=== PATIENT | female | born 1995 | race Two or more races ===

== ENCOUNTER 2018-06-27 12:46 | Emergency (ER) | payer MEDICAID, OTHER ==
[~2018-06-27] VITALS: Ht 152.4 cm; Wt 73.5 kg
[2018-06-27 13:45] LABS: Basophils # (auto) 0 uL; Hemoglobin 11.2 g/dL (12.2-16.2); Monocytes # (auto) 0.4 uL
[2018-06-27 13:48] LABS: Basophils % (auto) 0.5 % (0.0-2.0); Eosinophils # (auto) 0.1 uL; Eosinophils % (auto) 1.6 % (0.0-7.0); Hematocrit 34.9 % (36.0-46.0); Lymphocytes # (auto) 3.4 uL; Lymphocytes % (auto) 47.7 % (10.0-50.0); Mean Corpuscular Volume 78.2 fL (80.0-100.0); Monocytes % (auto) 5.7 % (0.0-12.0); Neutrophils # (auto) 3.2 uL; Neutrophils % (auto) 44.5 % (37.0-80.0); Nucleated Red Blood Cells % 0.2 %; Platelet Count (auto) 363 10^3/uL (140-450); Red Blood Cells 4.46 10^6/uL (4.0-5.20); White Blood Cell 7.1 10^3/uL (4.4-10.8)
[2018-06-27 14:20] LABS: Albumin 3.9 g/dL (3.4-5.0); Calcium 8.8 mg/dL (8.5-10.1); Potassium 3.9 mmol/L (3.5-5.1)
[2018-06-27 14:24] LABS: BUN/Creatinine Ratio 15.2; Bilirubin, Total 0.4 mg/dL (0.2-1.0); Total Protein 7.8 g/dL (6.4-8.2)
[2018-06-27 15:05] LABS: Urine WBC None Seen /hpf (0 - 5)
[2018-06-27 15:20] VITALS: BP 111/70
[2018-06-27 15:30] LABS: Urine Bacteria NONE SEEN /hpf (None Seen); Urine Blood Negative /uL (Negative)
== END 2018-06-27 16:18 | disposition home or self-care (01) ==
LOC: ER 12:55
DX: K52.9 Noninfective gastroenteritis and colitis, unspecified (principal); R51 Headache
CPT/HCPCS: 36415; 80053; 81001; 84702; 85025

== ENCOUNTER 2018-10-10 15:52 | Emergency (ER) | payer MEDICAID ==
[~2018-10-10] VITALS: Ht 154.9 cm; Wt 80.7 kg
[2018-10-10 17:11] LABS: Basophils # (auto) 0 uL; Basophils % (auto) 0.3 % (0.0-2.0); Hematocrit 33.7 % (36.0-46.0); Lymphocytes # (auto) 2.9 uL; Mean Corpuscular Volume 80.5 fL (80.0-100.0); Monocytes # (auto) 0.6 uL
[2018-10-10 17:12] LABS: Eosinophils # (auto) 0.1 uL; Eosinophils % (auto) 1.5 % (0.0-7.0); Lymphocytes % (auto) 29.2 % (10.0-50.0); Mean Corpuscular Hemoglobin 26.4 pg (28.0-32.0); Mean Corpuscular Hgb Conc. 32.8 g/dL (32.0-36.0); Neutrophils # (auto) 6.3 uL; Platelet Count (auto) 345 10^3/uL (140-450); Red Blood Cells 4.18 10^6/uL (4.0-5.20); Red Cell Distribution Width 15.7 % (11.8-14.3)
[2018-10-10 17:30] LABS: Albumin 3.1 g/dL (3.4-5.0); BUN/Creatinine Ratio 16.7; Calcium 8.8 mg/dL (8.5-10.1); Potassium 3.7 mmol/L (3.5-5.1)
[2018-10-10 17:32] LABS: Bilirubin, Total 0.2 mg/dL (0.2-1.0); Total Protein 7.5 g/dL (6.4-8.2)
[2018-10-10] MEDS ORDERED: ACETAMINOPHEN 325 MG TAB PO ONE (19:00)
[2018-10-10 19:15] VITALS: BP 103/88
[2018-10-10 19:19] LABS: Urine Bacteria FEW /hpf (None Seen); Urine Blood Negative /uL (Negative); Urine Mucus FEW (None Seen); Urine Specific Gravity 1.018 (1.001-1.035); Urine WBC 4 /hpf (0 - 5)
== END 2018-10-10 20:22 | disposition home or self-care (01) ==
LOC: ER 15:52
DX: O21.8 Other vomiting complicating pregnancy (principal); O23.42 Unspecified infection of urinary tract in pregnancy, second trimester; N13.9 Obstructive and reflux uropathy, unspecified; Z3A.16 16 weeks gestation of pregnancy
CPT/HCPCS: 36415; 76805; 80053; 81001; 84702; 85025

== ENCOUNTER 2018-11-10 19:29 | Observation (INO) | payer MEDICAID ==
[~2018-11-10] VITALS: Ht 152.4 cm; Wt 81.6 kg
[2018-11-10] MEDS ORDERED: PREN-96 PO (20:03)
[2018-11-10] MEDS ORDERED: ACET-1156 PO (20:03)
== END 2018-11-10 21:53 | disposition home or self-care (01) | DRG 566 ==
LOC: LDRP 19:29
PROVIDERS: ADMIT Specialist; ATTEND Specialist
DX: O26.892 Other specified pregnancy related conditions, second trimester (principal); M54.5 Low back pain; R10.30 Lower abdominal pain, unspecified; Z3A.21 21 weeks gestation of pregnancy
CPT/HCPCS: 76815; G0378

== ENCOUNTER 2018-11-20 15:22 | Emergency (ER) | payer MEDICAID ==
[~2018-11-20] VITALS: Ht 152.4 cm; Wt 85.7 kg
[~2018-11-20 15:22] MED LIST: ACET-1156 PO; PREN-96 PO
[2018-11-20 16:32] VITALS: BP 122/66
[2018-11-20] MEDS ORDERED: TETANUS-DIPTH-ACEL PERTUSSIS 0.5ML SYRG IM ONE (17:30)
== END 2018-11-20 17:52 | disposition home or self-care (01) ==
LOC: ER 15:22
DX: O99.89 Other specified diseases and conditions complicating pregnancy, childbirth and the puerperium (principal); S81.012A Laceration without foreign body, left knee, initial encounter; Z3A.22 22 weeks gestation of pregnancy; W19.XXXA Unspecified fall, initial encounter; Y93.89 Activity, other specified; Y92.89 Other specified places as the place of occurrence of the external cause; Y99.8 Other external cause status
CPT/HCPCS: 76805; 90471; 90715

== ENCOUNTER 2019-01-23 16:55 | Observation (INO) | payer MEDICAID ==
--- NOTE | 2019-01-23 18:20 | NUR ---
Received report from PHYLLIS Lizama [facility].
--- NOTE | 2019-01-23 18:30 | NUR ---
No antepartum orders entered at this time. Orders entered by this RN for Dr Hernandez's antepartum admit orders
[2019-01-23] MEDS ORDERED: FERR-7 PO (18:51)
[2019-01-23] MEDS ORDERED: TERBUTALINE SULFATE 1 MG/ML 1ML VIAL SC ONE ×2 (19:20→19:30)
--- NOTE | 2019-01-23 19:25 | NUR ---
Administered terbutaline sub cutaneously to pt upper right arm. 0.25 mg. pt tolerated well. EMAR shows a recorded dose of 1mg. Correct dose administered is 0.25 as ordered.
== END 2019-01-24 00:01 | disposition home or self-care (01) | DRG 566 ==
LOC: LDRP 16:55
PROVIDERS: ADMIT Obstetrics & Gynecology; ATTEND Obstetrics & Gynecology
DX: O26.893 Other specified pregnancy related conditions, third trimester (principal); O42.913 Preterm premature rupture of membranes, unspecified as to length of time between rupture and onset of labor, third trimester; R10.9 Unspecified abdominal pain; Z3A.31 31 weeks gestation of pregnancy
CPT/HCPCS: 96372; G0378; J3105

== ENCOUNTER 2019-01-29 14:45 | Observation (INO) | payer MEDICAID ==
[~2019-01-29 14:45] MED LIST changes: +FERR-7 PO
== END 2019-01-29 15:30 | disposition home or self-care (01) | DRG 563 ==
LOC: LDRP 14:45
PROVIDERS: ADMIT Obstetrics & Gynecology; ATTEND Obstetrics & Gynecology
DX: O60.03 Preterm labor without delivery, third trimester (principal); O99.89 Other specified diseases and conditions complicating pregnancy, childbirth and the puerperium; M54.5 Low back pain; Z3A.32 32 weeks gestation of pregnancy
CPT/HCPCS: 59025; 81002; G0378

== ENCOUNTER 2019-02-04 08:17 | Observation (INO) | payer MEDICAID | END 2019-02-04 09:15 | disposition home or self-care (01) | DRG 563 | LOC: LDRP 08:17 | PROVIDERS: ADMIT Obstetrics & Gynecology; ATTEND Obstetrics & Gynecology | DX: O60.03 Preterm labor without delivery, third trimester (principal); Z3A.33 33 weeks gestation of pregnancy | CPT/HCPCS: 59025; 81002; G0378 ==

== ENCOUNTER 2019-02-11 14:24 | Observation (INO) | payer MEDICAID ==
[2019-02-11] MEDS ORDERED: NIF10C GT (18:41)
== END 2019-02-11 15:50 | disposition home or self-care (01) | DRG 563 ==
LOC: LDRP 14:24
PROVIDERS: ADMIT Obstetrics & Gynecology; ATTEND Obstetrics & Gynecology
DX: O60.03 Preterm labor without delivery, third trimester (principal); Z3A.34 34 weeks gestation of pregnancy
CPT/HCPCS: 59025; 81002; G0378

== ENCOUNTER 2019-02-18 16:15 | Observation (INO) | payer MEDICAID ==
[~2019-02-18 16:15] MED LIST changes: +NIF10C GT
[2019-02-18 17:00] LABS: Urine Bacteria NONE SEEN /hpf (None Seen); Urine Blood Negative /uL (Negative); Urine Specific Gravity 1.025 (1.001-1.035); Urine WBC 4 /hpf (0 - 5)
== END 2019-02-18 17:20 | disposition home or self-care (01) | DRG 563 ==
LOC: LDRP 16:15
PROVIDERS: ADMIT Obstetrics & Gynecology; ATTEND Obstetrics & Gynecology
DX: O60.03 Preterm labor without delivery, third trimester (principal); Z3A.35 35 weeks gestation of pregnancy
CPT/HCPCS: 59025; 81001; 81002; G0378

== ENCOUNTER 2022-02-06 19:46 | Emergency (ER) | payer MEDICAID ==
[~2022-02-06] VITALS: Ht 152.4 cm; Wt 163.0 kg
[~2022-02-06 19:46] MED LIST changes: -ACET-1156 PO; +CIPR-173 PO; +IBUP800T27 PO; -NIF10C GT
[2022-02-06 20:46] VITALS: BP 124/81
[2022-02-06] MEDS: KETOROLAC TROMETH 30 MG/ML 1ML VIAL ONE ×2 (20:54→20:58)
[2022-02-06] MEDS ORDERED: KETOROLAC TROMETH 60MG/2ML VIAL IM ONE (21:00)
== END 2022-02-07 02:41 | disposition left against medical advice (07) ==
LOC: ER 19:48
DX: M25.522 Pain in left elbow (principal); Z53.21 Procedure and treatment not carried out due to patient leaving prior to being seen by health care provider; W01.0XXA Fall on same level from slipping, tripping and stumbling without subsequent striking against object, initial encounter; Y93.89 Activity, other specified; Y92.89 Other specified places as the place of occurrence of the external cause; Y99.8 Other external cause status
CPT/HCPCS: 73080; J1885

== ENCOUNTER 2022-07-08 18:24 | Emergency (ER) | payer MEDICAID ==
[~2022-07-08] VITALS: Ht 152.4 cm; Wt 90.5 kg
[2022-07-08 18:30] VITALS: BP 147/77
== END 2022-07-09 00:42 | disposition left against medical advice (07) ==
LOC: ER 18:24
DX: J02.9 Acute pharyngitis, unspecified (principal); R51.9 Headache, unspecified; R50.9 Fever, unspecified; R68.84 Jaw pain; Z53.21 Procedure and treatment not carried out due to patient leaving prior to being seen by health care provider

== ENCOUNTER 2022-10-15 17:37 | Emergency (ER) | payer MEDICAID ==
[~2022-10-15] VITALS: Ht 152.4 cm; Wt 69.9 kg
[~2022-10-15 17:37] MED LIST changes: +IBUP-1456 PO; -IBUP800T27 PO
[2022-10-15] MEDS ORDERED: AMOX875T4 PO (19:55)
[2022-10-15] MEDS ORDERED: ACET500T58 PO (19:55)
[2022-10-15] MEDS ORDERED: PRED20TA2 PO (19:55)
[2022-10-15] MEDS ORDERED: methylPREDNISolone SOD SUCC 40 MG/ML VL IM ONE (20:00)
[2022-10-15] MEDS ORDERED: cefTRIAXone SOD 1,000 MG VL IM ONE (20:00)
[2022-10-15 21:25] VITALS: BP 138/69; PULSE 78; RESP 18; TEMP 98; O2SAT 99
== END 2022-10-15 21:25 | disposition home or self-care (01) ==
LOC: ER 17:37
DX: J03.90 Acute tonsillitis, unspecified (principal); Z86.2 Personal history of diseases of the blood and blood-forming organs and certain disorders involving the immune mechanism; Z79.1 Long term (current) use of non-steroidal anti-inflammatories (NSAID); Z79.2 Long term (current) use of antibiotics; Z79.899 Other long term (current) drug therapy; Z88.8 Allergy status to other drugs, medicaments and biological substances
CPT/HCPCS: 96372; 99284; J0696; J2920

== ENCOUNTER 2023-04-14 07:41 | Emergency (ER) | payer MEDICAID, OTHER ==
[~2023-04-14] VITALS: Ht 152.4 cm; Wt 86.5 kg
[~2023-04-14 07:41] MED LIST changes: +ACET500T58 PO; +AMOX875T4 PO; +PRED20TA2 PO
[2023-04-14 07:58] VITALS: BP 141/85; PULSE 112; RESP 18; O2SAT 97
[2023-04-14] MEDS ORDERED: ACETAMINOPHEN 500 MG TAB PO ONE (08:30)
[2023-04-14 09:50] VITALS: TEMP 98.1
[2023-04-14 10:04] LABS: Rapid Influenza A Negative (Negative); Rapid Influenza B Negative (Negative)
[2023-04-14 10:05] LABS: COVID19 ANTIGEN SOFIA FIA NEGATIVE (NEGATIVE)
[2023-04-14] MEDS ORDERED: AZIT-81 PO (10:22)
[2023-04-14] MEDS ORDERED: PROM1SOL4 PO (10:22)
[2023-04-14] MEDS ORDERED: IBUP1TAB5 PO (10:22)
[2023-04-14] MEDS ORDERED: ACET500T58 PO (10:22)
[2023-04-14] MEDS ORDERED: BENZ100C97 PO (10:22)
== END 2023-04-14 10:30 | disposition home or self-care (01) ==
LOC: ER 07:41
DX: B34.9 Viral infection, unspecified (principal); J06.9 Acute upper respiratory infection, unspecified; Z20.822 Contact with and (suspected) exposure to COVID-19
CPT/HCPCS: 36415; 87426; 87804

== ENCOUNTER 2023-05-05 18:27 | Emergency (ER) | payer MEDICAID ==
[~2023-05-05] VITALS: Ht 152.4 cm; Wt 86.1 kg
[~2023-05-05 18:27] MED LIST changes: +AZIT-81 PO; +BENZ100C97 PO; +IBUP1TAB5 PO; +PROM1SOL4 PO
[2023-05-05 18:39] VITALS: BP 154/102; RESP 19; O2SAT 96
[2023-05-05 18:41] VITALS: PULSE 135
== END 2023-05-05 20:04 | disposition left against medical advice (07) ==
LOC: ER 18:27
DX: R05.9 Cough, unspecified (principal); R07.9 Chest pain, unspecified; Z53.21 Procedure and treatment not carried out due to patient leaving prior to being seen by health care provider
CPT/HCPCS: 93005